=== PATIENT | female | born 1990 | race Two or more races ===

== ENCOUNTER 2020-08-11 05:51 | Inpatient (IN) | payer OTHER ==
[~2020-08-11] VITALS: Ht 160 cm; Wt 2.7 kg
[2020-08-11] MEDS ORDERED: PRENATAL TABLE1 EAC1 PO (06:03)
[2020-08-11] MEDS ORDERED: IRON325 MG PO (06:04)
[2020-08-13] MEDS ORDERED: PERCOCET 5-3251 EACH PO (15:12)
[2020-08-13] MEDS ORDERED: SURFAK240 M1 PO (15:12)
== END 2020-08-13 16:50 | disposition home or self-care (01) | DRG 788 ==
LOC: OBS/DEL 05:51 → LDR 07:55 → OB/GYN 07:55 → OBS/DEL 07:55 → OB/GYN 12:55
PROVIDERS: ADMIT Specialist; ATTEND Specialist
PROC: 4A1HXFZ Monitoring of Products of Conception, Cardiac Rhythm, External Approach (ICD-10-PCS; 2020-08-11)
PROC: 3E033VJ Introduction of Other Hormone into Peripheral Vein, Percutaneous Approach (ICD-10-PCS; 2020-08-11)
PROC: 0U9LXZZ Drainage of Vestibular Gland, External Approach (ICD-10-PCS; 2020-08-11)
PROC: 10D00Z1 Extraction of Products of Conception, Low, Open Approach (ICD-10-PCS; principal; 2020-08-11 08:00)
DX: O75.3 Other infection during labor (principal); O34.211 Maternal care for low transverse scar from previous cesarean delivery; Z3A.38 38 weeks gestation of pregnancy; Z37.0 Single live birth; Z20.828 Contact with and (suspected) exposure to other viral communicable diseases